=== PATIENT | male | born 1970 | race Caucasian/White ===

== ENCOUNTER 2022-12-04 10:01 | Day surgery (SDC) | payer OTHER ==
[~2022-12-04] VITALS: Ht 172.7 cm; Wt 136.1 kg
[~2022-12-04 10:01] MED LIST: AMLO1TAB23 PO; ASPI1TAB20 PO; FURO40TA4 PO; METO1TAB9 PO; POTA10TA51 PO; VALS320T PO
[2022-12-04] MEDS ORDERED: GLYCOPYRROLATE 0.2 MG/ML 1ML VIAL ONE (10:58)
[2022-12-04] MEDS ORDERED: LIDOCAINE 2% (LOCAL ANESTH.) PF 5ml SDV ONE ×3 (10:58→12:37)
[2022-12-04] MEDS ORDERED: KETOROLAC TROMETH 30 MG/ML 1ML VIAL ONE (10:58)
[2022-12-04] MEDS ORDERED: ONDANSETRON HCL 4 MG/2 ML VIAL ONE (10:58)
[2022-12-04] MEDS ORDERED: PROPOFOL 10 MG/ML 20 ML IV ONE (10:59)
[2022-12-04] MEDS ORDERED: DexAMETHasone SOD PHOS 10MG/1ML VIAL INJ ONE (10:59)
[2022-12-04] MEDS ORDERED: PHENYLEPHRINE HCL 10 MG/ML VL IV ONE (11:00)
[2022-12-04] MEDS ORDERED: ceFAZolin 1GM/50ML 100 ML IV ONE (11:16)
[2022-12-04] MEDS ORDERED: ceFAZolin 1GM VL ONE (12:40)
[2022-12-04] MEDS ORDERED: fentaNYL CITRATE 100 MCG/2 ML VL ONE ×2 (13:09→14:18)
[2022-12-04 14:44] VITALS: RESP 19; TEMP 98.1; O2SAT 96
[2022-12-04 16:03] VITALS: BP 152/61; PULSE 75; RESP 14; O2SAT 94
== END 2022-12-04 16:20 | disposition home or self-care (01) ==
LOC: SUR 10:01 → EDBD 12:15 → SUR 16:20
PROVIDERS: ATTEND Orthopaedic Surgery
DX: S83.521A Sprain of posterior cruciate ligament of right knee, initial encounter (principal); S82.62XA Displaced fracture of lateral malleolus of left fibula, initial encounter for closed fracture; S93.432A Sprain of tibiofibular ligament of left ankle, initial encounter; X58.XXXA Exposure to other specified factors, initial encounter; Y93.89 Activity, other specified; Y92.89 Other specified places as the place of occurrence of the external cause; Y99.8 Other external cause status; I10 Essential (primary) hypertension; I25.2 Old myocardial infarction; E66.9 Obesity, unspecified; Z68.42 Body mass index [BMI] 45.0-49.9, adult; Z79.82 Long term (current) use of aspirin; Z79.899 Other long term (current) drug therapy; Z98.890 Other specified postprocedural states
CPT/HCPCS: 27695; 27792; 27829; 73600; 76000; C1713; J0690; J1100; J1885; J2001; J2370; J2405; J2704; J3010